=== PATIENT | male | born 1960 | race Caucasian/White ===

== ENCOUNTER 2016-10-17 08:33 | Inpatient (IN) | payer OTHER ==
[~2016-10-17] VITALS: Ht 180.3 cm; Wt 110.7 kg
[2016-10-17] VITALS (18 sets, daily range): BP systolic 97–130; BP diastolic 40–84
--- NOTE | ~2016-10-17 | 2DMMODE ---
[facility] [address] [place] [address] 2 D/M-MODE ECHOCARDIOGRAM Name: HARIKA VALDEZ Room #: 245-P ADM IN M.R.#: [id number] Admission: 10/17/16 Attend Phys: Dionne Wright Discharge: Date of : 60 Date of Service: 10/18/161953 Report #: [id number] THIS REPORT FOR: //name// APPROVED REPORT Study performed: 10/18/2016 09:53:27 EXAM: Comprehensive 2D, Doppler, and color-flow Echocardiogram Patient Location: Bedside Room #: Formerly [facility] Status: on-call Other Information Study Quality: Poor Indications Diabetes Hypertension/HDD Respiratory Failure Renal Failure Echo Enhancing Agent Indication: Endocardial border delineation Agent(s) / Amount(s) Used: Definity cc 2D Dimensions LVEF(%): 40.42 (>50%) IVSd: 10.54 (7-11mm) LVOT Diam: 20.00 (18-24mm) LVDd: 44.52 mm PWd: 11.45 (7-11mm) Ascending Ao: 30.49 (22-36mm) LVDs: 35.80 (25-40mm) Aortic Root: 32.88 mm Ratliff's LVEF: 40.42 % Volumes Left Atrial Volume (Systole) Single Plane 4CH: 72.37 mL Single Plane 2CH: 71.88 mL LA ESV Index: 34.00 mL/m2 Aortic Valve AoV Peak Mahad.: 1.57 m/s AO Peak Gr.: 10.27 mmHg LVOT Max P.25 mmHg LVOT Max V: 1.03 m/s ADOLFO Vmax: 2.06 cm2 [facility] [address] [place] [address] 2 D/M-MODE ECHOCARDIOGRAM Name: HARIKA VALDEZ Room #: 245-P [facility] IN ..#: [id number] Admission: 10/17/16 Attend Phys: Dionne Wright Discharge: Date of : 60 Date of Service: 10/18/161953 Report #: [id number] Mitral Valve E/A Ratio: 1.17 MV Decel. Time: 217.01 ms MV E Max Mahad.: 1.20 m/s MV A Mahad.: 1.02 m/s MV PHT: 62.93 ms IVRT: 83.04 ms Pulmonary Valve PV Peak Mahad.: 1.00 m/s PV Peak Gr.: 4.00 mmHg DE End Vmax: 1.64 m/s Pulmonary Vein P Vein S: 0.64 m/s P Vein A: 0.31 m/s P Vein D: 0.68 m/s P Vein A Dur.: 156.9 msec Tricuspid Valve TR Peak Mahad.: 3.28 m/s RAP Estimate: 10.00 mmHg TR Peak Gr.: 42.91 mmHg PA Pressure: 53.00 mmHg Left Ventricle The left ventricle is normal size. There is normal LV segmental wall motion. Borderline concentric left ventricular hypertrophy. Left ventricular systolic function is normal. The left ventricular ejection fraction is within the normal range. The left ventricular diastolic function is normal. Right Ventricle The right ventricle is normal size. The right ventricular systolic function is normal. Atria The left atrium size is normal. The atrial septum is aneurysmal. Right atrium is dilated. Aortic Valve The aortic valve is normal in structure. No aortic regurgitation is present. There is no aortic valvular stenosis. Mitral Valve There is mitral annular calcification. There is no mitral valve regurgitation noted. No evidence of mitral valve stenosis. Tricuspid Valve [address] [address] 2 D/M-MODE ECHOCARDIOGRAM Name: [facility] Room #: 245-P ADM IN M.R.#: [id number] Admission: 10/17/16 Attend Phys: Dionne Wright Discharge: Date of : 60 Date of Service: 10/18/16 195 Report #: [id number] The tricuspid valve is normal in structure. Mild tricuspid regurgitation. Pulmonic Valve The pulmonary valve is normal in structure. Mild pulmonic regurgitation. Great Vessels The aortic root is normal in size. IVC is normal in size and collapses with >50% inspiration Pericardium There is no pericardial effusion. <Conclusion> The left ventricle is normal size. Borderline concentric left ventricular hypertrophy. Left ventricular systolic function is normal. The left ventricular ejection fraction is within the normal range. The left ventricular diastolic function is normal. The right ventricle is normal size. The left atrium size is normal. Right atrium is dilated. The aortic valve is normal in structure. There is mitral annular calcification. There is no mitral valve regurgitation noted. Mild tricuspid regurgitation. There is no pericardial effusion. <ELECTRONICALLY SIGNED> By: Sony Swanson MD, FACC 10/18/161953 53 53 Sony Swanson MD, FACC /INF
--- NOTE | ~2016-10-17 | EKG ---
[address] [place] [address] ELECTROCARDIOGRAM REPORT Name: HARIKA VALDEZ Room #: 245-P ADM IN M.R.#: [id number] Admission: 10/17/16 Attend Phys: Donnell Craig MD Discharge: Date of : 60 Report #: [id number] THIS REPORT FOR: //name// [facility] ED Test Date: 2016-10-17 Test Time: 10:56:03 Pat Name: HARIKA VALDEZ Department: Room: [facility] Gender: M Dolly Operator: BEBETO Mariee : 1960 Requested By: Eliezer Thornton Order Number: [id number] MD: Eze Troncoso Measurements Intervals [place] Rate: 64 P: 37 [place]: 169 QRS: -23 QRSD: 105 T: 16 QT: 419 QTc: 433 Interpretive Statements Sinus rhythm Poor R wave progression No previous ECG available for comparison Electronically Signed On 10-19-2016 13:10:02 CDT by Eze Troncoso [email or web address] <ELECTRONICALLY SIGNED> By: Eze Troncoso MD, [facility] 10/19/16 1310 1056 1056 Eze Troncoso MD, FAC /EPI
[2016-10-17] MEDS ORDERED: SEROQUEL 25 MG25 M1 PO (08:47)
[2016-10-17] MEDS ORDERED: HYDRALAZINE 2525 MG PO (08:48)
[2016-10-17] MEDS ORDERED: CARVEDILOL6.25 MG PO (08:48)
[2016-10-17] MEDS ORDERED: DIVALPROEX SOD500 MG PO (08:48)
[2016-10-17] MEDS ORDERED: SINGULAIR 10 MG10 M1 PO (08:49)
[2016-10-17] MEDS ORDERED: GEMFIBROZIL 60600 M1 PO (08:49)
[2016-10-17] MEDS ORDERED: NEURONTIN 300300 M1 PO (08:50)
[2016-10-17] MEDS ORDERED: CYCLOBENZAPRINE5 MG PO (08:50)
[2016-10-17] MEDS ORDERED: SENNA8.6 MG PO (08:51)
[2016-10-17] MEDS ORDERED: FLONASE 0.05%50 MCG NASAL (08:51)
[2016-10-17] MEDS ORDERED: MIRALAX255 GM PO (08:51)
[2016-10-17] MEDS ORDERED: LIDODERM 5%1 PATC1 TRANSDERM (08:53)
[2016-10-17] MEDS ORDERED: HYDROXYZINE HCL10 M1 PO (08:53)
[2016-10-17] MEDS ORDERED: VITAMIN D2000 UNI1 PO (08:54)
[2016-10-17] MEDS ORDERED: RENVELA800 MG PO (08:54)
[2016-10-17] MEDS ORDERED: FLOMAX0.4 MG PO (08:55)
[2016-10-17] MEDS ORDERED: SODIUM BICARBO650 M3 PO (08:55)
[2016-10-17] MEDS ORDERED: ESCITALOPRAM OX10 MG PO (08:59)
[2016-10-17] MEDS ORDERED: LIPITOR 20 MG T20 M1 PO (09:00)
[2016-10-17] MEDS ORDERED: ASPIR 8181 MG PO (09:00)
[2016-10-17] MEDS ORDERED: NORVASC5 MG PO (09:00)
[2016-10-17] MEDS ORDERED: AMLODIPINE BESY10 MG PO (09:01)
[2016-10-17] MEDS ORDERED: PROCRIT 1010000 U/M1 SUBQ (09:01)
[2016-10-17] MEDS ORDERED: TEFLARO600 MG IV (09:02)
[2016-10-17] MEDS ORDERED: DAPTOMYCIN500 MG IVPB (09:03)
[2016-10-17] MEDS ORDERED: LEVAQUIN 750 M750 MG PO (09:04)
[2016-10-17] MEDS ORDERED: PERCOCET PO (09:04)
[2016-10-17] MEDS ORDERED: HUMALOG100 UNIT/1 SUBQ (09:06)
[2016-10-17] MEDS ORDERED: LEVEMIR SUBQ (09:07)
[2016-10-17 10:04] LABS: HEMATOCRIT 20.9 % (42.0-52.0); MCH 28.9 pg (26.0-34.0); MCHC 33.4 g/dL (28.0-37.0); MCV 86.6 fL (80.0-100.0); PLATELET COUNT 412 thou/uL (150-400); RBC 2.42 mil/uL (4.50-6.00); RDW 15.6 % (10.5-14.5); WBC 7.9 thou/uL (4.0-11.0)
[2016-10-17 10:07] LABS: MANUAL DIFF YES
[2016-10-17 10:11] LABS: CALCIUM 8.6 mg/dL (8.5-10.1); CREATININE 5.6 mg/dL (0.7-1.3); POTASSIUM 5.9 mmol/L (3.5-5.1)
[2016-10-17 11:23] LABS: ABG SAMPLE TYPE ARTERIAL; HCO3 19.4 mmol/L (22.0-26.0); LACTATE 1.04 mmol/L (0.5-2.0); O2(CT) 9.8 mL/dL (15.0-23.0); O2Hb 81.2 % (92.0-98.0); PCO2 43.5 mmHg (35.0-45.0); STICK SITE L.RADIAL; pH 7.268 (7.360-7.450); sO2 84.3 % (92.0-98.0); tCO2 20.8 mmol/L (24.0-30.0)
[2016-10-17 11:46] LABS: ANISOCYTOSIS 1+; ATYPICAL LYMPHS 1 %; METAMYELOCYTES 1 %; POLYCHROMASIA SLIGHT; TOTAL CELL COUNT 100
[2016-10-17 13:27] LABS: ABG SAMPLE TYPE ARTERIAL; BE(vivo) -7.4 mmol/L (-2 to +3); HCO3 18.9 mmol/L (22.0-26.0); O2(CT) 10.2 mL/dL (15.0-23.0); O2Hb 93.6 % (92.0-98.0); PCO2 41.9 mmHg (35.0-45.0); PO2 86.2 mmHg (80.0-100.0); sO2 95.3 % (92.0-98.0); tCO2 20.2 mmol/L (24.0-30.0)
[2016-10-17 13:28] LABS: STICK SITE L.RADIAL; pH 7.272 (7.360-7.450)
[2016-10-17 22:07] LABS: ABG SAMPLE TYPE ARTERIAL; BE(vivo) -9.4 mmol/L (-2 to +3); HCO3 17.8 mmol/L (22.0-26.0); LACTATE 0.71 mmol/L (0.5-2.0); O2(CT) 12.6 mL/dL (15.0-23.0); O2Hb 94.1 % (92.0-98.0); PCO2 44.8 mmHg (35.0-45.0); PO2 87.1 mmHg (80.0-100.0); sO2 94.8 % (92.0-98.0); tCO2 19.2 mmol/L (24.0-30.0)
[2016-10-17 22:08] LABS: STICK SITE L.RADIAL; pH 7.218 (7.360-7.450)
[2016-10-17 22:08] LABS: ALBUMIN 1.8 g/dL (3.4-5.0); ALKALINE PHOSPHATASE 81 U/L (46-116); DIRECT BILIRUBIN < 0.1 mg/dL (<0.1-0.3); SGOT 21 U/L (15-37); SGPT < 6 U/L (30-65); TOTAL BILIRUBIN 0.2 mg/dL (<0.1-1.0); TOTAL PROTEIN 8.3 g/dL (6.4-8.2)
[2016-10-17 23:53] LABS: ABG SAMPLE TYPE ARTERIAL; BE(vivo) -8.6 mmol/L (-2 to +3); HCO3 18.1 mmol/L (22.0-26.0); LACTATE 0.67 mmol/L (0.5-2.0); O2(CT) 10.7 mL/dL (15.0-23.0); O2Hb 94.6 % (92.0-98.0); PCO2 42.9 mmHg (35.0-45.0); PO2 91.5 mmHg (80.0-100.0); sO2 95.7 % (92.0-98.0); tCO2 19.5 mmol/L (24.0-30.0)
[2016-10-17 23:54] LABS: FIO2 35 %; STICK SITE L.RADIAL; pH 7.244 (7.360-7.450)
[2016-10-17 23:55] LABS: Pressure Support 8 cm H20
[2016-10-18] VITALS (33 sets, daily range): BP systolic 86–132; BP diastolic 50–91
[2016-10-18 05:26] LABS: HEMATOCRIT 21.3 % (42.0-52.0); MCH 28.6 pg (26.0-34.0); MCHC 32.8 g/dL (28.0-37.0); MCV 87.2 fL (80.0-100.0); RBC 2.44 mil/uL (4.50-6.00); RDW 15.3 % (10.5-14.5); WBC 5.7 thou/uL (4.0-11.0)
[2016-10-18 05:32] LABS: ABG SAMPLE TYPE ARTERIAL; BE(vivo) -8.2 mmol/L (-2 to +3); HCO3 18.1 mmol/L (22.0-26.0); LACTATE 0.75 mmol/L (0.5-2.0); O2(CT) 10.4 mL/dL (15.0-23.0); O2Hb 93.9 % (92.0-98.0); PCO2 40.4 mmHg (35.0-45.0); PO2 85.7 mmHg (80.0-100.0); sO2 95.2 % (92.0-98.0); tCO2 19.3 mmol/L (24.0-30.0)
[2016-10-18 05:33] LABS: FIO2 25 %; Pressure Support 8 cm H20; STICK SITE L.RADIAL; pH 7.269 (7.360-7.450)
[2016-10-18 06:19] LABS: ALBUMIN 1.6 g/dL (3.4-5.0); CALCIUM 8.1 mg/dL (8.5-10.1); CREATININE 5.7 mg/dL (0.7-1.3); PHOSPHORUS 6.5 mg/dL (2.5-4.9); POTASSIUM 5.8 mmol/L (3.5-5.1); TOTAL BILIRUBIN 0.3 mg/dL (<0.1-1.0); TOTAL PROTEIN 7.7 g/dL (6.4-8.2)
[2016-10-18 14:56] LABS: URINE BILIRUBIN NEGATIVE (Negative); URINE BLOOD 2+ (Negative); URINE COLOR YELLOW; URINE GLUCOSE-RANDOM* TRACE (Negative); URINE KETONES NEGATIVE (Negative); URINE NITRITE NEGATIVE (Negative); URINE PROTEIN (DIPSTICK) 2+ (Negative); URINE UROBILINOGEN 0.2 E.U./dl (0.2-1.0)
[2016-10-18 15:05] LABS: SQUAMOUS None Seen /LPF (0-3)
[2016-10-18 15:06] LABS: CASTS None Seen /LPF (None Seen); CRYSTALS None Seen /LPF (None Seen)
[2016-10-19] VITALS (21 sets, daily range): BP systolic 111–160; BP diastolic 52–79
[2016-10-19 04:05] LABS: ALBUMIN 1.8 g/dL (3.4-5.0); CALCIUM 8.3 mg/dL (8.5-10.1); CREATININE 4.9 mg/dL (0.7-1.3); PHOSPHORUS 5.6 mg/dL (2.5-4.9)
[2016-10-19 04:41] LABS: POTASSIUM 4.8 mmol/L (3.5-5.1)
[2016-10-19 05:26] LABS: HEMATOCRIT 23.1 % (42.0-52.0); HEMOGLOBIN 7.6 gm/dL (14.0-18.0); MCH 28.4 pg (26.0-34.0); RBC 2.69 mil/uL (4.50-6.00); RDW 15.7 % (10.5-14.5); WBC 6.4 thou/uL (4.0-11.0)
[2016-10-19 08:29] LABS: ABG SAMPLE TYPE ARTERIAL; BE(vivo) -3.2 mmol/L (-2 to +3); HCO3 22.6 mmol/L (22.0-26.0); LACTATE 0.95 mmol/L (0.5-2.0); O2(CT) 11.4 mL/dL (15.0-23.0); O2Hb 92.7 % (92.0-98.0); PCO2 44.3 mmHg (35.0-45.0); pH 7.326 (7.360-7.450)
[2016-10-19 08:30] LABS: STICK SITE L.RADIAL
[2016-10-20] VITALS (7 sets, daily range): BP systolic 140–159; BP diastolic 67–103
[2016-10-20 04:28] LABS: CALCIUM 8.5 mg/dL (8.5-10.1); CREATININE 4.2 mg/dL (0.7-1.3); POTASSIUM 4.7 mmol/L (3.5-5.1)
[2016-10-20 04:44] LABS: HEMATOCRIT 23.9 % (42.0-52.0); MCH 28.4 pg (26.0-34.0); MCHC 33.3 g/dL (28.0-37.0); MCV 85.2 fL (80.0-100.0); RBC 2.8 mil/uL (4.50-6.00); RDW 15.7 % (10.5-14.5); WBC 6.3 thou/uL (4.0-11.0)
[2016-10-20 07:42] LABS: % SATURATION 26 % (20-39); IRON 49 ug/dL (65-175); TIBC 187 ug/dL (250-450); UIBC 138 ug/dL
[2016-10-21 04:07] LABS: GLYCOHEMOGLOBIN (HGB A1C) 6.8 % (4.8-5.6)
[2016-10-21 07:14] LABS: HEMATOCRIT 23.3 % (42.0-52.0); HEMOGLOBIN 7.9 gm/dL (14.0-18.0); MCH 28.5 pg (26.0-34.0); MCHC 33.8 g/dL (28.0-37.0); MCV 84.2 fL (80.0-100.0); RBC 2.76 mil/uL (4.50-6.00); RDW 15.6 % (10.5-14.5); WBC 6.5 thou/uL (4.0-11.0)
[2016-10-21 07:37] LABS: CALCIUM 8.5 mg/dL (8.5-10.1); CREATININE 3.5 mg/dL (0.7-1.3); POTASSIUM 4.5 mmol/L (3.5-5.1)
[2016-10-21 08:36] VITALS: BP 151/82
[2016-10-21 15:44] VITALS: BP 148/63
[2016-10-21 19:20] VITALS: BP 146/73
[2016-10-22 03:41] VITALS: BP 169/88
[2016-10-22 06:23] LABS: HEMOGLOBIN 9.1 gm/dL (14.0-18.0); MCH 28.1 pg (26.0-34.0); MCHC 33.7 g/dL (28.0-37.0); MCV 83.5 fL (80.0-100.0); RBC 3.23 mil/uL (4.50-6.00); RDW 15.6 % (10.5-14.5); WBC 7.3 thou/uL (4.0-11.0)
[2016-10-22 06:49] LABS: CALCIUM 8.6 mg/dL (8.5-10.1); CREATININE 3.1 mg/dL (0.7-1.3); PHOSPHORUS 4.4 mg/dL (2.5-4.9); POTASSIUM 4.2 mmol/L (3.5-5.1)
[2016-10-22 07:52] VITALS: BP 161/74
[2016-10-22 20:22] VITALS: BP 143/60
[2016-10-23 05:14] VITALS: BP 154/71
[2016-10-23 05:41] LABS: ABSOLUTE NEUTROPHILS 4.8 thou/uL (1.4-8.2); BASOPHILS 0.9 % (0.0-2.0); EOSINOPHILS 5.1 % (0.0-3.0); HEMATOCRIT 26.9 % (42.0-52.0); HEMOGLOBIN 8.9 gm/dL (14.0-18.0); LYMPHOCYTES 26.4 % (24.0-44.0); MCH 27.9 pg (26.0-34.0); MCHC 33.1 g/dL (28.0-37.0); MCV 84.4 fL (80.0-100.0); MONOCYTES 11.8 % (1.0-8.0); PLATELET COUNT 389 thou/uL (150-400); POLYS 55.8 % (36.0-66.0); RBC 3.19 mil/uL (4.50-6.00); RDW 15.3 % (10.5-14.5); WBC 8.6 thou/uL (4.0-11.0)
[2016-10-23 05:47] LABS: MANUAL DIFF NO
[2016-10-23 05:57] LABS: CALCIUM 8.5 mg/dL (8.5-10.1); CREATININE 2.8 mg/dL (0.7-1.3); PHOSPHORUS 4.2 mg/dL (2.5-4.9); POTASSIUM 4.2 mmol/L (3.5-5.1)
[2016-10-23 08:00] VITALS: BP 144/68
[2016-10-23 16:00] VITALS: BP 173/73
== END 2016-10-23 18:30 | DRG 871 ==
LOC: ER 08:33 → EROBS 12:39 → ICU 12:39 → 4S 10-20 12:40
PROVIDERS: Emergency Medicine; Family Medicine; Hospitalist; Internal Medicine Pulmonary Disease
PROC: 5A09357 Assistance with Respiratory Ventilation, Less than 24 Consecutive Hours, Continuous Positive Airway Pressure (ICD-10-PCS; principal; 2016-10-17)
PROC: 02HV33Z Insertion of Infusion Device into Superior Vena Cava, Percutaneous Approach (ICD-10-PCS; 2016-10-17)
DX: A41.9 Sepsis, unspecified organism (principal); J96.02 Acute respiratory failure with hypercapnia; E43 Unspecified severe protein-calorie malnutrition; J96.01 Acute respiratory failure with hypoxia; G93.41 Metabolic encephalopathy; J69.0 Pneumonitis due to inhalation of food and vomit; N17.9 Acute kidney failure, unspecified; I13.0 Hypertensive heart and chronic kidney disease with heart failure and stage 1 through stage 4 chronic kidney disease, or unspecified chronic kidney disease; E87.5 Hyperkalemia; G89.29 Other chronic pain; N18.9 Chronic kidney disease, unspecified; E11.51 Type 2 diabetes mellitus with diabetic peripheral angiopathy without gangrene; E11.22 Type 2 diabetes mellitus with diabetic chronic kidney disease; E78.5 Hyperlipidemia, unspecified; E11.65 Type 2 diabetes mellitus with hyperglycemia; D64.9 Anemia, unspecified; E83.39 Other disorders of phosphorus metabolism; I50.9 Heart failure, unspecified; L89.610 Pressure ulcer of right heel, unstageable; R53.81 Other malaise; Z68.34 Body mass index [BMI] 34.0-34.9, adult; Z89.431 Acquired absence of right foot; Z79.899 Other long term (current) drug therapy; Z88.5 Allergy status to narcotic agent; Z88.6 Allergy status to analgesic agent; Z88.0 Allergy status to penicillin
CPT/HCPCS: 10078; 10102

== ENCOUNTER 2016-10-29 17:14 | Inpatient (IN) | payer OTHER ==
[2016-10-29] VITALS (14 sets, daily range): BP systolic 92–133; BP diastolic 44–87
[~2016-10-29] VITALS: Ht 188 cm; Wt 113.6 kg
--- NOTE | ~2016-10-29 | HC ---
[facility] [place] [address] CONSULTATION Name: HARIKA VALDEZ Room #: 238-P [facility] IN ..#: [id number] Admission: 10/29/16 Attend Phys: Evelio Centeno MD Discharge: Date of : 60 Report #: [id number] THIS REPORT FOR: //name// CC: Lenin Centeno DATE OF SERVICE: 10/30/2016 DATE OF EVALUATION: 10/30/2016. CHIEF COMPLAINT: Bilateral lower extremity ulcerations. HISTORY OF PRESENT ILLNESS: This is a 56-year-old white male patient with whom I am familiar from recent hospitalization, he was recently discharged from [facility]. He had had a transmetatarsal amputation as well as an otherwise undetermined surgical procedure on his left foot. He also has heel ulcers bilaterally. He was followed while here, and ultimately, discharged to home. He has returned with acute respiratory failure and septic shock. I have been asked to see him with regard to wound care. The patient is not able to provide any information about himself as he was intubated and on a ventilator and either sedated or minimally responsive. MEDICATIONS: Include quetiapine, carvedilol, hydralazine, divalproex, gemfibrozil, montelukast, gabapentin, Renvela, tamsulosin, cyclobenzaprine, fluticasone, polyethylene glycol, hydroxyzine, lidocaine patch, cholecalciferol, sodium bicarbonate, escitalopram, atorvastatin, aspirin, Procrit, amlodipine, Teflaro, levofloxacin, oxycodone, lispro insulin, Levemir insulin, daptomycin. ALLERGIES: CODEINE, MORPHINE AND PENICILLINS. REVIEW OF SYSTEMS: Unobtainable due to the patient's alertness and being on a ventilator. PAST MEDICAL HISTORY: Positive for diabetes, hypertension, renal disease, bilateral transmetatarsal amputations. FAMILY HISTORY: Positive for diabetes and hypertension. PHYSICAL EXAMINATION: VITAL SIGNS: At this time include respiratory rate of 24, pulse 66, blood pressure 110/50, temperature 97.6. GENERAL: This is a chronically ill-appearing male patient who is nonresponsive. HEENT: Head is normocephalic. NECK: Supple. The patient is orally intubated. LUNGS: Diminished. HEART: Regular rhythm. [address] [address] CONSULTATION Name: [facility] Room #: 238-P [facility] IN M.R.#: [id number] Admission: 10/29/16 Attend Phys: Evelio Centeno MD Discharge: Date of : 60 Report #: [id number] ABDOMEN: Soft. EXTREMITIES: Demonstrate transmetatarsal amputation site on the right foot with an intact incision line, looks to be healing well. It is not infected. He has a pressure ulceration on his right posterior heel with some eschar present. I have removed the sutures from the incision line. Rashaad were left in place. Left foot shows a previously healed transmetatarsal amputation. There is also an incision line on the lateral aspect of the foot. Once again, nylon sutures were removed from this location. It does not appear to be infected. There is some breakdown with eschar on the left heel, not as bad as the right, also not infected. CLINICAL IMPRESSION: 1. Surgical incisions to both feet. 2. Status post right transmetatarsal amputation. 3. Diabetes mellitus. 4. Pressure ulcerations to both heels, unstageable. 5. Respiratory failure requiring mechanical ventilation. RECOMMENDATIONS: At this point in time, we will recommend silver alginate to all wound areas on the feet covered with Kerlix gauze. He will need to be turned and repositioned while in bed to avoid pressure ulceration. I appreciate being asked to see him in consultation. <ELECTRONICALLY SIGNED> By: Rebel Corcoran MD 10/31/16 0742 1705 2318 Rebel Corcoran MD /nt
--- NOTE | ~2016-10-29 | EKG ---
[address] [address] ELECTROCARDIOGRAM REPORT Name: HARIKA VALDEZ Room #: 238-P ADM IN M.R.#: [id number] Admission: 10/29/16 Attend Phys: Evelio Centeno MD Discharge: Date of : 60 Report #: [id number] THIS REPORT FOR: //name// [facility] ED Test Date: 2016-10-29 Test Time: 17:13:43 Pat Name: HARIKA VALDEZ Department: Room: 238 Gender: M Sticker Hand: KURT : 1960 Requested By: Kaylin Vieyra Order Number: [id number] MD: Eze Troncoso Measurements Intervals [place] Rate: 45 P: CT: QRS: -6 QRSD: 115 T: 8 QT: 524 QTc: 454 Interpretive Statements Junctional rhythm Nonspecific intraventricular conduction delay Compared to ECG 10/17/2016 10:56:03 Junctional rhythm now present Electronically Signed On 10-30-2016 17:27:41 CDT by Eze Troncoso [email or web address] <ELECTRONICALLY SIGNED> By: Eze Troncoso MD, [facility] 10/30/16 1727 D: [id number] Eze Troncoso MD, FACC /EPI
--- NOTE | ~2016-10-29 | EKG ---
[address] [address] ELECTROCARDIOGRAM REPORT Name: HARIKA VALDEZ Room #: 238-P ADM IN M.R.#: [id number] Admission: 10/29/16 Attend Phys: Evelio Centeno MD Discharge: Date of : 60 Report #: [id number] THIS REPORT FOR: //name// [facility] Test Date: 2016-10-30 Test Time: 10:10:28 Pat Name: HARIKA VALDEZ Department: Room: 238 P Gender: M Retreader: Jaylene DE LA VEGA : 1960 Requested By: Neagr Lianres Order Number: [id number] MD: Eze Troncoso Measurements Intervals [place] Rate: 66 P: 33 [place]: 181 QRS: -31 QRSD: 108 T: 21 QT: 449 QTc: 471 Interpretive Statements Sinus rhythm Atrial premature complex Left axis deviation Compared to ECG 10/17/2016 10:56:03 Atrial premature complex(es) now present Left-axis deviation now present Electronically Signed On 10-30-2016 17:37:50 CDT by Eze Troncoso [email or web address] <ELECTRONICALLY SIGNED> By: Eze Troncoso MD, [facility] 10/30/16 1737 1010 1010 Eze Troncoso MD, [facility] /EPI
[~2016-10-29 17:14] MED LIST: AMLODIPINE BESY10 MG PO; ASPIR 8181 MG PO; CARVEDILOL6.25 MG PO; CYCLOBENZAPRINE5 MG PO; DAPTOMYCIN500 MG IVPB; DIVALPROEX SOD500 MG PO; ESCITALOPRAM OX10 MG PO; FLOMAX0.4 MG PO; FLONASE 0.05%50 MCG NASAL; GEMFIBROZIL 60600 M1 PO; HUMALOG100 UNIT/1 SUBQ; HYDRALAZINE 2525 MG PO; HYDROXYZINE HCL10 M1 PO; LEVAQUIN 750 M750 MG PO; LEVEMIR SUBQ; LIDODERM 5%1 PATC1 TRANSDERM; LIPITOR 20 MG T20 M1 PO; MIRALAX255 GM PO; NEURONTIN 300300 M1 PO; NORVASC5 MG PO; PERCOCET PO; PROCRIT 1010000 U/M1 SUBQ; RENVELA800 MG PO; SENNA8.6 MG PO; SEROQUEL 25 MG25 M1 PO; SINGULAIR 10 MG10 M1 PO; SODIUM BICARBO650 M3 PO; TEFLARO600 MG IV; VITAMIN D2000 UNI1 PO
[2016-10-29 17:36] LABS: URINE BILIRUBIN NEGATIVE (Negative); URINE BLOOD NEGATIVE (Negative); URINE COLOR YELLOW; URINE GLUCOSE-RANDOM* TRACE (Negative); URINE KETONES NEGATIVE (Negative); URINE LEUKOCYTES-REFLEX NEGATIVE (Negative); URINE PROTEIN (DIPSTICK) 3+ (Negative); URINE SPECIFIC GRAVITY 1.025 (1.003-1.035); URINE UROBILINOGEN 0.2 E.U./dl (0.2-1.0)
[2016-10-29 17:37] LABS: ABSOLUTE NEUTROPHILS 9.1 thou/uL (1.4-8.2); BASOPHILS 0.3 % (0.0-2.0); EOSINOPHILS 2.4 % (0.0-3.0); HEMATOCRIT 22.8 % (42.0-52.0); HEMOGLOBIN 7.5 gm/dL (14.0-18.0); LYMPHOCYTES 12.6 % (24.0-44.0); MCH 27.7 pg (26.0-34.0); MCHC 32.8 g/dL (28.0-37.0); MCV 84.5 fL (80.0-100.0); MONOCYTES 5.7 % (1.0-8.0); PLATELET COUNT 216 thou/uL (150-400); RDW 15.6 % (10.5-14.5); WBC 11.5 thou/uL (4.0-11.0)
[2016-10-29 17:41] LABS: MANUAL DIFF NO
[2016-10-29 17:43] LABS: ANION GAP 11 mmol/L (7-16); BUN 63 mg/dL (7-18); CALCIUM 7.1 mg/dL (8.5-10.1); CHLORIDE 98 mmol/L (98-107); CO2 20 mmol/L (21-32); CREATININE 5.9 mg/dL (0.7-1.3); GLUCOSE 127 mg/dL (74-106); POTASSIUM 4.8 mmol/L (3.5-5.1); SODIUM 129 mmol/L (136-145)
[2016-10-29 17:43] LABS: CASTS None Seen /LPF (None Seen); CRYSTALS None Seen /LPF (None Seen); SQUAMOUS 0-3 Few /LPF (0-3)
[2016-10-29 17:44] LABS: URINE RBC None Seen /HPF (0-2); URINE WBC-REFLEX 0-5 Rare /HPF (0-5)
[2016-10-29 17:53] LABS: ALBUMIN 1.9 g/dL (3.4-5.0); ALKALINE PHOSPHATASE 85 U/L (46-116); DIRECT BILIRUBIN 0.1 mg/dL (<0.1-0.3); MAGNESIUM 1.1 mg/dL (1.8-2.4); NT-PRO BRAIN NAT PEPTIDE 3517 pg/mL (<300); SGOT 13 U/L (15-37); TOTAL BILIRUBIN 0.2 mg/dL (<0.1-1.0); TOTAL PROTEIN 7.5 g/dL (6.4-8.2); TROPONIN-I < 0.04 ng/mL (<0.04-0.07)
[2016-10-29 17:58] LABS: ABG SAMPLE TYPE ARTERIAL; BE(vivo) -13.8 mmol/L (-2 to +3); HCO3 14.4 mmol/L (22.0-26.0); LACTATE 1.46 mmol/L (0.5-2.0); O2Hb 88.9 % (92.0-98.0); PO2 73.9 mmHg (80.0-100.0); STICK SITE R.RADIAL; pH 7.133 (7.360-7.450); sO2 89.9 % (92.0-98.0); tCO2 15.8 mmol/L (24.0-30.0)
[2016-10-29 18:02] LABS: SGPT 5 U/L (30-65)
[2016-10-29 19:51] LABS: ABG SAMPLE TYPE ARTERIAL; BE(vivo) -15.9 mmol/L (-2 to +3); HCO3 13.2 mmol/L (22.0-26.0); LACTATE 1.34 mmol/L (0.5-2.0); O2(CT) 12.3 mL/dL (15.0-23.0); O2Hb 93.6 % (92.0-98.0); PCO2 45.1 mmHg (35.0-45.0); PO2 98.1 mmHg (80.0-100.0); STICK SITE R.RADIAL; TIDAL VOLUME 500 ml; pH 7.083 (7.360-7.450); sO2 94.6 % (92.0-98.0); tCO2 14.5 mmol/L (24.0-30.0)
[2016-10-30] VITALS (77 sets, daily range): BP systolic 81–146; BP diastolic 35–130
[2016-10-30] MEDS ORDERED: TEFLARO 600 MG600 MG IV (00:30)
[2016-10-30 04:50] LABS: HEMATOCRIT 24.7 % (42.0-52.0); HEMOGLOBIN 8.2 gm/dL (14.0-18.0); MCH 27.5 pg (26.0-34.0); MCHC 33.1 g/dL (28.0-37.0); MCV 83.1 fL (80.0-100.0); PLATELET COUNT 260 thou/uL (150-400); RBC 2.97 mil/uL (4.50-6.00); RDW 15.1 % (10.5-14.5); WBC 15.8 thou/uL (4.0-11.0)
[2016-10-30 04:54] LABS: MANUAL DIFF YES
[2016-10-30 05:01] LABS: ALBUMIN 1.8 g/dL (3.4-5.0); ALKALINE PHOSPHATASE 103 U/L (46-116); ANION GAP 13 mmol/L (7-16); BUN 64 mg/dL (7-18); CALCIUM 7.7 mg/dL (8.5-10.1); CHLORIDE 94 mmol/L (98-107); CO2 19 mmol/L (21-32); CREATININE 6.1 mg/dL (0.7-1.3); GLUCOSE 190 mg/dL (74-106); POTASSIUM 5.6 mmol/L (3.5-5.1); SGOT 15 U/L (15-37); SODIUM 126 mmol/L (136-145); TOTAL BILIRUBIN 0.4 mg/dL (<0.1-1.0)
[2016-10-30 05:31] LABS: SGPT < 6 U/L (30-65)
[2016-10-30 05:32] LABS: ABG SAMPLE TYPE ARTERIAL; BE(vivo) -10.5 mmol/L (-2 to +3); HCO3 15.9 mmol/L (22.0-26.0); LACTATE 1.08 mmol/L (0.5-2.0); O2(CT) 13.1 mL/dL (15.0-23.0); O2Hb 98.2 % (92.0-98.0); PCO2 37.1 mmHg (35.0-45.0); PO2 188.4 mmHg (80.0-100.0); sO2 99.1 % (92.0-98.0)
[2016-10-30 05:33] LABS: STICK SITE RRA; TIDAL VOLUME 50 ml
[2016-10-30 05:34] LABS: ABG COMMENT AC24 500 +5 100%
[2016-10-30 05:55] LABS: ABSOLUTE NEUTROPHILS 14.7 thou/uL (1.4-8.2); ANISOCYTOSIS SLIGHT; TOTAL CELL COUNT 100
[2016-10-31] VITALS (60 sets, daily range): BP systolic 94–133; BP diastolic 45–92
[2016-10-31 05:15] LABS: ABG SAMPLE TYPE ARTERIAL; BE(vivo) -6.3 mmol/L (-2 to +3); HCO3 19.6 mmol/L (22.0-26.0); LACTATE 0.96 mmol/L (0.5-2.0); O2Hb 96.1 % (92.0-98.0); PCO2 40.7 mmHg (35.0-45.0); STICK SITE RRA; sO2 97.5 % (92.0-98.0); tCO2 20.9 mmol/L (24.0-30.0)
[2016-10-31 05:16] LABS: ABG COMMENT AC24 500 +5 70%; TIDAL VOLUME 500 ml; pH 7.301 (7.360-7.450)
[2016-10-31 05:25] LABS: ABSOLUTE NEUTROPHILS 6.6 thou/uL (1.4-8.2); BASOPHILS 0.4 % (0.0-2.0); WBC 8.7 thou/uL (4.0-11.0)
[2016-10-31 05:27] LABS: EOSINOPHILS 5.3 % (0.0-3.0); HEMOGLOBIN 6.6 gm/dL (14.0-18.0); LYMPHOCYTES 11.9 % (24.0-44.0); MCH 28.7 pg (26.0-34.0); MCHC 34.6 g/dL (28.0-37.0); MCV 82.9 fL (80.0-100.0); MONOCYTES 5.9 % (1.0-8.0); PLATELET COUNT 251 thou/uL (150-400); POLYS 76.5 % (36.0-66.0); RDW 15.6 % (10.5-14.5)
[2016-10-31 05:35] LABS: MANUAL DIFF NO
[2016-10-31 05:36] LABS: HEMATOCRIT 19.1 % (42.0-52.0)
[2016-10-31 05:40] LABS: ALBUMIN 1.6 g/dL (3.4-5.0); CALCIUM 7.4 mg/dL (8.5-10.1); CREATININE 5.8 mg/dL (0.7-1.3); PHOSPHORUS 6.2 mg/dL (2.5-4.9); POTASSIUM 4.2 mmol/L (3.5-5.1)
[2016-11-01] VITALS (43 sets, daily range): BP systolic 115–145; BP diastolic 52–70
[2016-11-01 04:47] LABS: ALBUMIN 1.8 g/dL (3.4-5.0); CALCIUM 8.2 mg/dL (8.5-10.1); CREATININE 5.6 mg/dL (0.7-1.3); PHOSPHORUS 6.7 mg/dL (2.5-4.9); POTASSIUM 4.7 mmol/L (3.5-5.1)
[2016-11-02] VITALS (28 sets, daily range): BP systolic 112–143; BP diastolic 48–73
[2016-11-02 05:41] LABS: ABG SAMPLE TYPE ARTERIAL; BE(vivo) 0.5 mmol/L (-2 to +3); HCO3 26.6 mmol/L (22.0-26.0); LACTATE 1.02 mmol/L (0.5-2.0); O2(CT) 11.8 mL/dL (15.0-23.0); O2Hb 94.4 % (92.0-98.0); PCO2 49.9 mmHg (35.0-45.0); pH 7.344 (7.360-7.450); sO2 95.7 % (92.0-98.0); tCO2 28.1 mmol/L (24.0-30.0)
[2016-11-02 05:42] LABS: ABG COMMENT A/C MODE; STICK SITE L.RADIAL; TIDAL VOLUME 500 ml
[2016-11-02 06:14] LABS: HEMATOCRIT 23.1 % (42.0-52.0); MCH 28.9 pg (26.0-34.0); MCHC 34.6 g/dL (28.0-37.0); MCV 83.5 fL (80.0-100.0); RBC 2.76 mil/uL (4.50-6.00); RDW 15.7 % (10.5-14.5)
[2016-11-02 06:31] LABS: ALBUMIN 1.8 g/dL (3.4-5.0); CALCIUM 8.5 mg/dL (8.5-10.1); CREATININE 5.1 mg/dL (0.7-1.3); PHOSPHORUS 5.9 mg/dL (2.5-4.9); POTASSIUM 4.5 mmol/L (3.5-5.1)
[2016-11-03] VITALS (27 sets, daily range): BP systolic 121–180; BP diastolic 51–87
[2016-11-03 04:20] LABS: HEMATOCRIT 22.5 % (42.0-52.0); HEMOGLOBIN 7.8 gm/dL (14.0-18.0); MCH 28.5 pg (26.0-34.0); MCHC 34.4 g/dL (28.0-37.0); MCV 82.7 fL (80.0-100.0); RBC 2.72 mil/uL (4.50-6.00); RDW 15.5 % (10.5-14.5)
[2016-11-03 04:36] LABS: ALBUMIN 1.7 g/dL (3.4-5.0); CREATININE 4.2 mg/dL (0.7-1.3); PHOSPHORUS 5.2 mg/dL (2.5-4.9); POTASSIUM 4.1 mmol/L (3.5-5.1)
[2016-11-03 05:30] LABS: ABG SAMPLE TYPE ARTERIAL; BE(vivo) 2.8 mmol/L (-2 to +3); HCO3 28.1 mmol/L (22.0-26.0); LACTATE 0.94 mmol/L (0.5-2.0); O2(CT) 11.4 mL/dL (15.0-23.0); O2Hb 91.7 % (92.0-98.0); PCO2 46.8 mmHg (35.0-45.0); PO2 71.1 mmHg (80.0-100.0); STICK SITE L.RADIAL; pH 7.396 (7.360-7.450); sO2 94.1 % (92.0-98.0); tCO2 29.5 mmol/L (24.0-30.0)
[2016-11-03 05:31] LABS: TIDAL VOLUME 500 ml
[2016-11-03 11:58] LABS: ABG SAMPLE TYPE ARTERIAL; BE(vivo) 4.3 mmol/L (-2 to +3); HCO3 30.5 mmol/L (22.0-26.0); O2(CT) 16.8 mL/dL (15.0-23.0); O2Hb 95.7 % (92.0-98.0); PCO2 52.6 mmHg (35.0-45.0); PO2 93.3 mmHg (80.0-100.0); pH 7.381 (7.360-7.450); sO2 96.9 % (92.0-98.0); tCO2 32.1 mmol/L (24.0-30.0)
[2016-11-03 11:59] LABS: ABG COMMENT CPAP TRIAL; Pressure Support 8 cm H20; STICK SITE R.RADIAL; TIDAL VOLUME 760 ml
[2016-11-04] VITALS (17 sets, daily range): BP systolic 129–185; BP diastolic 58–92
[2016-11-04 05:17] LABS: HEMATOCRIT 27.6 % (42.0-52.0); HEMOGLOBIN 9.4 gm/dL (14.0-18.0); MCH 28.5 pg (26.0-34.0); MCHC 34.1 g/dL (28.0-37.0); MCV 83.6 fL (80.0-100.0); RBC 3.3 mil/uL (4.50-6.00); RDW 15.1 % (10.5-14.5); WBC 8.7 thou/uL (4.0-11.0)
[2016-11-04 05:19] LABS: ABG SAMPLE TYPE ARTERIAL; BE(vivo) 4.6 mmol/L (-2 to +3); HCO3 29.1 mmol/L (22.0-26.0); LACTATE 1.18 mmol/L (0.5-2.0); O2(CT) 13.3 mL/dL (15.0-23.0); O2Hb 92.3 % (92.0-98.0); PCO2 42.7 mmHg (35.0-45.0); PO2 68.7 mmHg (80.0-100.0); pH 7.451 (7.360-7.450); sO2 94.5 % (92.0-98.0); tCO2 30.4 mmol/L (24.0-30.0)
[2016-11-04 05:21] LABS: STICK SITE R.RADIAL
[2016-11-04 05:33] LABS: ALBUMIN 1.9 g/dL (3.4-5.0); CALCIUM 9.4 mg/dL (8.5-10.1); PHOSPHORUS 4.7 mg/dL (2.5-4.9)
[2016-11-04 05:35] LABS: CREATININE 3.2 mg/dL (0.7-1.3)
[2016-11-05 00:04] VITALS: BP 164/62
[2016-11-05 04:39] VITALS: BP 167/70
[2016-11-05 05:57] LABS: ALBUMIN 1.9 g/dL (3.4-5.0); CALCIUM 8.9 mg/dL (8.5-10.1); CREATININE 2.9 mg/dL (0.7-1.3); PHOSPHORUS 4.1 mg/dL (2.5-4.9); POTASSIUM 3.6 mmol/L (3.5-5.1)
[2016-11-05 07:12] LABS: ABG SAMPLE TYPE ARTERIAL; BE(vivo) 9.8 mmol/L (-2 to +3); HCO3 34.7 mmol/L (22.0-26.0); LACTATE 0.95 mmol/L (0.5-2.0); O2(CT) 13.8 mL/dL (15.0-23.0); O2Hb 94.4 % (92.0-98.0); PCO2 48.5 mmHg (35.0-45.0); PO2 75.8 mmHg (80.0-100.0); pH 7.472 (7.360-7.450); sO2 95.8 % (92.0-98.0); tCO2 36.2 mmol/L (24.0-30.0)
[2016-11-05 07:13] LABS: STICK SITE R.BRACHIAL
[2016-11-05 07:17] VITALS: BP 169/74
[2016-11-05 09:48] LABS: HEMATOCRIT 27.8 % (42.0-52.0); HEMOGLOBIN 9.4 gm/dL (14.0-18.0); MCH 28.6 pg (26.0-34.0); MCHC 33.7 g/dL (28.0-37.0); MCV 84.6 fL (80.0-100.0); RBC 3.28 mil/uL (4.50-6.00); RDW 15.3 % (10.5-14.5); WBC 8.6 thou/uL (4.0-11.0)
[2016-11-05 11:26] VITALS: BP 139/60
[2016-11-05 15:04] VITALS: BP 157/73
[2016-11-05 19:23] VITALS: BP 167/74
[2016-11-06 03:58] VITALS: BP 170/84
[2016-11-06 05:56] LABS: HEMATOCRIT 29.2 % (42.0-52.0); HEMOGLOBIN 9.5 gm/dL (14.0-18.0); MCH 27.3 pg (26.0-34.0); MCHC 32.6 g/dL (28.0-37.0); MCV 83.8 fL (80.0-100.0); RBC 3.48 mil/uL (4.50-6.00); RDW 15.1 % (10.5-14.5); WBC 11.1 thou/uL (4.0-11.0)
[2016-11-06 06:10] LABS: ALBUMIN 2.1 g/dL (3.4-5.0); CALCIUM 8.8 mg/dL (8.5-10.1); CREATININE 2.7 mg/dL (0.7-1.3); POTASSIUM 3.8 mmol/L (3.5-5.1)
[2016-11-06 07:20] VITALS: BP 167/78
[2016-11-06 12:02] VITALS: BP 153/82
[2016-11-06 15:10] VITALS: BP 150/85
[2016-11-06] MEDS ORDERED: DUONEB 2.5-0.5 M3 ML INH (15:11)
[2016-11-06] MEDS ORDERED: DOXYCYCLINE 10100 MG PO (15:11)
== END 2016-11-06 16:45 | DRG 870 ==
LOC: ER 17:14 → EROBS 18:31 → ICU 18:31 → 4W 11-04 15:25
PROVIDERS: Emergency Medicine; Hospitalist; Internal Medicine; Internal Medicine Pulmonary Disease
PROC: 5A1955Z Respiratory Ventilation, Greater than 96 Consecutive Hours (ICD-10-PCS; principal; 2016-10-29)
PROC: 0BH17EZ Insertion of Endotracheal Airway into Trachea, Via Natural or Artificial Opening (ICD-10-PCS; principal; 2016-10-29)
PROC: 05HM33Z Insertion of Infusion Device into Right Internal Jugular Vein, Percutaneous Approach (ICD-10-PCS; 2016-10-30)
PROC: 30243N1 Transfusion of Nonautologous Red Blood Cells into Central Vein, Percutaneous Approach (ICD-10-PCS; 2016-10-31)
DX: A41.9 Sepsis, unspecified organism (principal); J96.01 Acute respiratory failure with hypoxia; J18.9 Pneumonia, unspecified organism; R65.21 Severe sepsis with septic shock; E43 Unspecified severe protein-calorie malnutrition; J96.02 Acute respiratory failure with hypercapnia; G93.41 Metabolic encephalopathy; I50.33 Acute on chronic diastolic (congestive) heart failure; N17.9 Acute kidney failure, unspecified; N18.4 Chronic kidney disease, stage 4 (severe); E87.1 Hypo-osmolality and hyponatremia; I13.0 Hypertensive heart and chronic kidney disease with heart failure and stage 1 through stage 4 chronic kidney disease, or unspecified chronic kidney disease; E11.22 Type 2 diabetes mellitus with diabetic chronic kidney disease; E78.00 Pure hypercholesterolemia, unspecified; E83.42 Hypomagnesemia; D63.8 Anemia in other chronic diseases classified elsewhere; F32.9 Major depressive disorder, single episode, unspecified; N40.0 Benign prostatic hyperplasia without lower urinary tract symptoms; R26.81 Unsteadiness on feet; L89.620 Pressure ulcer of left heel, unstageable; L89.610 Pressure ulcer of right heel, unstageable; E11.51 Type 2 diabetes mellitus with diabetic peripheral angiopathy without gangrene; E87.5 Hyperkalemia; E78.5 Hyperlipidemia, unspecified; E11.65 Type 2 diabetes mellitus with hyperglycemia; Z89.431 Acquired absence of right foot; Z79.899 Other long term (current) drug therapy; Z88.6 Allergy status to analgesic agent; Z88.5 Allergy status to narcotic agent; Z88.0 Allergy status to penicillin; Z68.32 Body mass index [BMI] 32.0-32.9, adult; Z82.49 Family history of ischemic heart disease and other diseases of the circulatory system; Z83.3 Family history of diabetes mellitus; Z87.820 Personal history of traumatic brain injury
CPT/HCPCS: 10045; 10078; 27000